=== PATIENT | female | born 2000 | race Caucasian/White ===

== ENCOUNTER → 2019-09-12 14:36 | Outpatient (BNVA) | payer MEDICAID, SELFPAY | PROVIDERS: Family Provider Nurse Practitioner; PCP Nurse Practitioner; Visit Provider Internal Medicine | DX: Z11.59 Encounter for screening for other viral diseases (principal) | CPT/HCPCS: 87635 ==

== ENCOUNTER → 2019-12-28 06:49 | Day surgery (SDC) | payer MEDICAID, SELFPAY ==
[2019-12-28 10:08] VITALS: BP 112/70; PULSE 91; RESP 18; TEMP 36.6; O2SAT 97
== END ==
PROVIDERS: PCP Nurse Practitioner; Visit Provider Family Medicine
DX: O36.0930 Maternal care for other rhesus isoimmunization, third trimester, not applicable or unspecified (principal)
CPT/HCPCS: 36415; 86850; 86900; 90384; 96372

== ENCOUNTER 2020-03-10 15:20 | Inpatient (IN) | payer MEDICAID, SELFPAY ==
[2020-03-10] VITALS (40 sets, daily range): BP systolic 95–135; BP diastolic 45–94; PULSE 83–139; RESP 18; TEMP 36.4–36.9; O2SAT 98–100; BMI 30.8
[2020-03-10 17:26] LABS: Basophils % 0.2 %; Eosinophils # 0.1 10^3/uL (0.0-0.8); Eosinophils % 0.7 %; Hematocrit 36.5 % (37.0-47.0); Hemoglobin 11.8 g/dL (11.5-15.3); Lymphocytes # 1.8 10^3/uL (1.5-6.5); Lymphocytes % 11.5 %; Mean Corpuscular HGB Conc 32.3 g/dL (30.0-36.0); Mean Corpuscular Hemoglobin 26.8 pg (28.0-34.0); Mean Corpuscular Volume 82.8 fL (81-99); Mean Platelet Volume 11.6 fL (7.4-10.4); Monocytes # 1.1 10^3/uL (0.2-0.9); Monocytes % 6.8 %; Neutrophils # 12.78 10^3/uL (1.8-8.0); Neutrophils % 80.4 %; Nucleated Red Blood Cells % 0 %; Platelet Count 274 10^3/cmm (130-400); Red Blood Count 4.41 10^6/uL (4.1-5.3); Red Cell Distribution Width 12.9 % (12.1-15.1); White Blood Count 15.9 10^3/uL (4.5-13.0)
[2020-03-10] MEDS: ampicillin 2,000 MG in sodium chloride 0.9% (plus) 50 ML 100 MG IV (17:26)
[2020-03-10] MEDS: dextrose 5%-lactated ringers 1,000 ML 125 ML IV (17:26)
[2020-03-10] MEDS: lactated ringers 1,000 ML 999 ML IV (17:45)
--- NOTE | 2020-03-10 17:55 | ANES.PREANE2 ---
Pre-Anesthetic Assessment Pre-Anesthetic Assessment: Height/Weight: Height 1.7 m Weight 89.358 kg Temp Pulse BP Pulse Ox 98.4 F 109 H 120/62 100 03/10/20 15:50 03/10/20 18:12 03/10/20 18:12 03/10/20 18:12 Preop Diagnosis: IUP Proposed Procedure: labor epidural Was Beta Ibeth taken within 24 hours: N/A Social: Social History: No alcohol and No tobacco Exam: Pre-Anes Outpt Exam: alert, oriented x 3, clear to auscultation bilaterally and regular rate & rhythm Airway: Submandibular: WNL Cervical ROM: WNL MP: 2 Dentition: Chipped History/ROS: No significant history except as noted Pulmonary: Pulmonary: None reported CV/HEM: CV/HEM: None reported : : None reported Hepatic: Hepatic: None reported GI: GI: None reported Metabolic: Metabolic: None reported Musc/skel: Musc/skel: None reported Neuropsych: Neuropsych: None reported Anesthetic Plan: ASA status: 1 Anesthesia: Anesthesia Evaluation Risk of > 500 ml blood loss (7ml/kg in children): No Meds/Allergies Current Medications: Current Medications Generic Name Dose Route Start Last Admin Trade Name Freq PRN Reason Stop Dose Admin Dextrose/Lactated Ringer's 1,000 mls @ 125 m ls/hr 03/10/20 17:15 03/10/20 17:45 Dextrose 5%-Lact ated Ringers IV 0 mls/hr .Q8H MINDY Infusion Ropivacaine 200 mg in 100 mls @ 13 mls/hr 03/10/20 17:30 03/10/20 17:44 Naropin Premix EPIDURAL 13 mls/hr .Q7H42M MINDY Administration Lactated Ringer's 1,000 mls @ 999 m ls/hr 03/10/20 17:22 03/10/20 17:45 Lactated Ringers IV 999 mls/hr .Q1H1M PRN Administration See label comment s PFSH Anesthesia Female Reproductive History: : 2 Data Anesthesia CBC & Chem 7: 03/10/20 17:05 Other Labs: Laboratory Results - last 48 hr 03/10/20 17:05 WBC 15.9 H RBC 4.41 Hgb 11.8 Hct 36.5 L MCV 82.8 MCH 26.8 L MCHC 32.3 RDW 12.9 Plt Count 274 MPV 11.6 H Neut % (Auto) 80.4 Lymph % (Auto) 11.5 Elbert % (Auto) 6.8 Eos % (Auto) 0.7 Baso % (Auto) 0.2 Neut # (Auto) 12.78 H Lymph # (Auto) 1.8 Elbert # (Auto) 1.1 H Eos # (Auto) 0.1 Baso # (Auto) 0.0 Nucleated RBC % (auto) 0 Nucleated RBCs # 0.0 Cardiac Studies: No Data to Display
--- NOTE | 2020-03-10 18:19 | ANES.PROC ---
Anesthesia Procedures Procedure/Date: 03/10/20 Epidural: Time Out Performed: Yes Consents Signed: Procedure Consent Consent: requested by attending/covering physician Lumbar Level: L3-L4 Epidural position: sitting Epidural procedure: sterile prep of area, 1% lidocaine to numb the area, 18 g needle, negative for paresthesia passed, neg for paresthesia, test dose given, 1.5% xylocaine 1:200k epi (5ml), placed PCEA, no systemic response, sterile dressing applied, L.U.D. no apparent complications and 0.2% Ropiavacaine @ mls/hr (13)
[2020-03-10] MEDS: ampicillin 1,000 MG in sodium chloride 0.9% (plus) 50 ML 100 MG IV (21:06)
[2020-03-10 22:09] LABS: Nitrazine Paper, PH Negative
--- NOTE | 2020-03-10 22:11 | P.PCNOB_ITS ---
Delivery Note: Date of delivery: March 10, 2020 Pre-Delivery Course: The patient presented to the hospital active labor. An epidural was placed. An amniotomy was performed. She progressed to complete without difficulty. She was GBS positive and received 2 doses of ampicillin. Delivery: DELIVERY: The patient progressed to complete without difficulty. She delivered a male with a weight of 8 pounds 3 ounces with Apgars of 9, 9. The baby was delivered from the KERRI position and placed on the mother's abdomen. The cord was then clamped and cut. There was no nuchal cord. There was no meconium. The placenta and 3 vessel cord were delivered intact shortly thereafter. The perineum and vaginal vault were carefully examined. A small first-degree midline laceration was noted in the posterior vagina that did not require repair. Both the mother and the baby were in stable condition. A&P Assessment and plan (1) 39 weeks gestation of : I anticipate routine care. Status: Acute (2) Spontaneous vaginal delivery: Status: Acute Coding Level of Care Code Acute Locker Room Clerk for Chg Fwd Diagnoses 39 weeks gestation of Z3A.39 Spontaneous vaginal delivery O80
[2020-03-11] VITALS (20 sets, daily range): BP systolic 99–136; BP diastolic 54–62; PULSE 75–112; RESP 15–17; TEMP 35.7–36.7; O2SAT 98
[2020-03-11] MEDS: HYDROcodone-acetaminophen 5-325 mg Tablet PO (02:42)
[2020-03-11] MEDS: docusate sodium 100 mg Capsule PO ×2 (09:15→18:33)
[2020-03-11] MEDS: prenatal vitamin Capsule 1 CAP PO (09:15)
[2020-03-11] MEDS: ibuprofen 800 mg tablet PO ×3 (09:15→21:11)
[2020-03-11 10:17] LABS: Hematocrit 31.9 % (37.0-47.0); Hemoglobin 10.2 g/dL (11.5-15.3); Mean Corpuscular Volume 84.4 fL (81-99); Mean Platelet Volume 11.5 fL (7.4-10.4); Platelet Count 203 10^3/cmm (130-400); Red Blood Count 3.78 10^6/uL (4.1-5.3); Red Cell Distribution Width 13.2 % (12.1-15.1)
--- NOTE | 2020-03-11 11:58 | PC.NURSE ---
pt encouraged to shower and ambulate in room. shower supplies provided.
--- NOTE | 2020-03-11 14:56 | ANE.PACU2 ---
Inpatient post-anesthesia follow up: Airway intact: Yes Vital signs: Temperature 98.1 F Pulse Rate 103 Respiratory Rate 15 Blood Pressure 113/56 Pulse Oximetry 99 Oxygen Delivery Me thod Room Air Oxygen Flow Rate Fraction of Inspir ed Oxygen Hydration adequate: Yes Nausea and vomiting: No Pain level: 2 Mental status: Baseline Additional Comments: no headaches, no numbness/weakness of lower extremities, urinating without chua, no signs or symptoms of infection at neuraxail site
--- NOTE | 2020-03-11 19:04 | P.DS_ITS ---
Discharge Providers TERMITE TREATER HELPER Date of Admission: 03/10/20 17:13 Date of Discharge: 03/11/20 Attending Provider at Admission: Daniel Lara MD Attending Provider at Discharge: Daniel Lara MD Primary Care Provider: ANOOP Oglesby Diagnoses at Discharge Discharge Diagnosis (1) 39 weeks gestation of : Status: Acute (2) Spontaneous vaginal delivery: Status: Acute Reason for Visit Reason for Visit: CONTRACTIONS SINCE 0430 Hospital Course Hospital Course The patient presented to the hospital in active labor. Please see delivery note for details of hospital stay prior to delivery. Postdelivery, the patient has had an unremarkable hospital stay. Her bleeding has been minimal. Her pain is been well controlled. She has bottle-fed her baby. There have been no concerns. Information Peripartum Data: Infant Delivery Method: Vaginal Physical Exam Const: COMMON NORMALS: no acute distress and patient oriented x3 GENERAL APPEARANCE: cooperative, comfortable and well developed HENMT: COMMON NORMALS: normocephalic and moist oral mucous membranes HEAD & SCALP: normocephalic Chest: COMMONS NORMALS: normal inspection of the chest Resp: COMMON NORMALS: normal respiratory effort and clear to auscultation bilaterally AUSCULTATION: clear to auscultation bilaterally Cardio: COMMON NORMALS: regular rate, regular rhythm and No gallops present (Cardio) RATE: regular rate RHYTHM: regular rhythm GI: COMMON NORMALS: Normal to inspection, nondistended, normoactive bowel sounds present (Fundus is 2 cm below the umbilicus) Extremity: COMMON NORMALS: normal to inspection Neuro: COMMON NORMALS: patient oriented x3 and no focal motor deficits Skin: COMMON NORMALS: no rashes or lesions noted GENERAL SKIN EXAM: no rashes or lesions noted Urinary Catheter Management^: [place]: Cath Placed During This Visit: yes Reason for Continuing Indwelling Catheter: Other Urinary Catheter Date of Insertion: 03/10/20 Urinary Catheter Time of Insertion: 18:25 Discharge Data Data Completed and Pending: Labs from last 24 hours 03/11/20 09:55 WBC 16.0 H RBC 3.78 L Hgb 10.2 L Hct 31.9 L MCV 84.4 MCH 27.0 L MCHC 32.0 RDW 13.2 Plt Count 203 MPV 11.5 H Vitals: Last Vital Signs Temp 97.5 F L 03/11/20 15:37 Pulse 75 03/11/20 15:37 Resp 16 03/11/20 15:38 BP 106/59 03/11/20 15:37 Pulse Ox 99 03/10/20 18:22 Discharge Plan Discharge Patient Disposition: Home Condition: Stable Prescriptions: New ibuprofen 800 mg Tablet 800 mg PO TID Qty: 30 RF: 0 Discharge Orders: Discharge Order (Routine); Ordered 03/11/20 Ordered By: Daniel Laar Referrals: Daniel Lara MD [Physician] - 6 Weeks Discharge Diet: Regular Discharge Activity: Limit activity as instructed Patient Instructions: Vaginal Delivery (DC), OB Discharge Report, OB Food/Drug Interaction Guide, OB Home Care, OB Proud Parent Packet, OB Vaginal Deliveries Discharge Attestations TERMITE TREATER HELPER Time Spent in Discharge Care*: less than 30 min Specific Discharge Activities: Specific discharge activities: educating patient Coding Level of Care Code Acute Contact Clerk for Chg Fwd Diagnoses 39 weeks gestation of Z3A.39 Spontaneous vaginal delivery O80
== END 2020-03-11 22:40 | disposition home or self-care (01) | DRG 807 ==
PROVIDERS: Admitting Provider Family Medicine; PCP Nurse Practitioner; Visit Provider Family Medicine
DX: O99.824 Streptococcus B carrier state complicating childbirth (principal); Z37.0 Single live birth; Z3A.39 39 weeks gestation of pregnancy; O70.0 First degree perineal laceration during delivery
CPT/HCPCS: 12345; 36415; 51702; 59025; 59409; 83986; 85025; 85027; 99211; G0378; G0379; J0290; J2795

== ENCOUNTER 2021-11-27 19:06 | Emergency (ER) | payer MEDICAID, SELFPAY ==
[2021-11-27 19:08] VITALS: BP 117/78; PULSE 91; RESP 15; TEMP 36.9; O2SAT 95; BMI 29.1
--- NOTE | 2021-11-27 19:48 | W.ED.ALLEREA ---
HPI - Allergic Reaction General: Chief complaint: Allergic Reaction Stated complaint: poison marichuy on face Time Seen by Provider: 11/27/21 19:33 History of Present Illness: HPI narrative: Patient is a 21-year-old female comes to the ED with pruritic rash. Patient works in [id number]. Yesterday they were cleaning out a flower bed and she got into some poison marichuy. She has poison marichuy type pruritic rash on her arms and legs bilaterally and also around her mouth. Denies any trouble breathing, throat tightening, lip or tongue swelling. Patient had poison sumac approximately 1 month ago and was given a steroid shot at that time which resolved the rash. Associated symptoms: Deny abdominal pain, nausea or vomiting Review of Systems Const: Denies: fever(s), chills or fatigue Eyes: Denies: change in vision or eye discomfort ENMT: Denies: throat pain, odynophagia, nasal discharge or nasal congestion Card: Denies: chest pain, palpitations, edema, swelling of feet/ankles, dyspnea on exertion or orthopnea Resp: Denies: dyspnea, productive cough or non-productive cough GI: Denies: abdominal pain, nausea, vomiting, diarrhea, constipation or hematochezia : Denies: flank pain, dysuria or hematuria Musc: Denies: neck pain, back pain or extremity swelling Skin/Breast: Reports: rash; Denies: new lesions Neuro: Denies: headache(s), numbness in extremities or weakness in extremities REPLACED BY [facility] PFSH: Medical History No pertinent family history Surgical History No pertinent past surgical history Female Reproductive History: Date of last menstrual period: 11/23/21 Physical Exam Const: COMMON NORMALS: no acute distress, patient oriented x3, healthy appearing and alert GENERAL APPEARANCE: cooperative and comfortable HENMT: COMMON NORMALS: normocephalic HEAD & SCALP: normocephalic MOUTH: Normal oral and palatal mucosa present, lip normal and tongue normal THROAT: posterior oropharynx normal and uvula midline Neck/C-Spine: COMMON NORMALS: supple GENERAL: Yes normal visual inspection Resp: COMMON NORMALS: normal respiratory effort, No retractions, No use of accessory muscles and clear to auscultation bilaterally AUSCULTATION: clear to auscultation bilaterally Cardio: COMMON NORMALS: regular rate, regular rhythm, S1 normal heart sound present, S2 normal heart sound present, No gallops present (Cardio), No clicks present (Cardio), No murmurs present (Cardio) and Peripheral pulses 2+ throughout RATE: regular rate RHYTHM: regular rhythm HEART SOUNDS: S1 normal heart sound present and S2 normal heart sound present PERIPHERAL PULSES: Peripheral pulses 2+ throughout GI: COMMON NORMALS: Normal to inspection, nondistended, normoactive bowel sounds present, Soft to palpation, non-tender and no masses PALPATION: Yes Soft to palpation : COMMON NORMALS: Yes no CVA tenderness BLADDER/KIDNEY EXAM: Yes no CVA tenderness Back/Pelvis: COMMON NORMALS: no CVA tenderness Extremity: COMMON NORMALS: normal to inspection Neuro: COMMON NORMALS: patient oriented x3 SENSORIUM/ORIENTATION: Yes alert GAIT: Yes Normal gait present Skin: NARRATIVE SKIN EXAM: Patient has linear raised erythemic maculopapular rash on arms bilaterally and around mouth. GENERAL SKIN EXAM: dry skin Course Vital Signs: Vital signs: Vital Signs Temperature 98.4 F 11/27/21 19:08 Pulse Rate 91 11/27/21 19:08 Respiratory Rate 15 11/27/21 19:08 Blood Pressure 117/78 11/27/21 19:08 Pulse Oximetry 95 11/27/21 19:08 MDM - Allergic Reaction Medical Decision Making Patient is a 21-year-old female comes to the ED with poison marichuy rash on arms and legs bilaterally and around her mouth. 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 Denies any other acute findings such as shortness of breath, throat tightening, lip or tongue swelling or nausea/vomiting. Vitals are stable. Patient appears nontoxic in no acute distress or pain. She has poison marichuy type rash on her arms bilaterally and around mouth. She is given a dose of Kenalog here in the ED. She was stable for discharge and sent home with a prescription for Medrol Dosepak to take if rash does not improve after 4 to 5 days from getting shot here in the ED. Follow-up with PCP within the next week for reevaluation. Patient understood and agreed with plan. Discharge Plan Discharge Patient Disposition: Home Clinical Impression: Allergic dermatitis due to poison marichuy Condition: Stable Prescriptions: New Medrol (Edis) 4 mg tablets,dose pack See Rx Instructions .ROUTE .COMPLEX Qty: 21 0RF Rx Instructions: orally per package directions Discharge Orders: Discharge ED (Routine); Ordered 11/27/21 Ordered By: Stuart Obrien Discharge Diet: Regular Discharge Activity: Increase activity as tolerated Patient Instructions: Poison [place], [place], and [place] - Adult Activity Restrictions/Additional Instructions: Follow-up with medical provider as directed in the next 7 to 10 days for reevaluation. If poison marichuy rash is not improving approximately 4 to 5 days after getting shot, then start taking the Medrol Dosepak prescription that I am sending you with. Take medications as prescribed. Return to the ER or your medical provider if condition worsens. Please read and understand discharge instructions. Thank you for choosing [facility] for your healthcare needs today. Please realize this is an emergency room and that we are providing you with a medical screening exam and this may not be complete and all inclusive of all the testing and or work up that you may need to determine your ailment or severity of your illness. It is very important that you follow up as instructed or that you return to the Emergency Department should you have concerns or if your condition changes or worsens in any way. Coding Level of Care Code ED Electrician Marine for Linh Galdamez Exam Comprehensive
[2021-11-27] MEDS: triamcinolone 40 mg/mL SDV IM (20:12)
== END 2021-11-27 20:15 | disposition home or self-care (01) ==
PROVIDERS: Emergency Provider Physician Assistant
DX: L23.7 Allergic contact dermatitis due to plants, except food (principal); L13.0 Dermatitis herpetiformis
CPT/HCPCS: 96372; 99284; J3301

== ENCOUNTER 2021-12-14 11:10 | Outpatient (CLI) | payer MEDICAID, SELFPAY ==
--- NOTE | 2021-12-14 11:27 | XR_ITS ---
WS: [id number] Left knee, 3 views, 12/14/2021 Clinical Data: BILATERAL KNEE JOINT PAIN X 3 MONTHS Comparison: None. Findings: No fractures or dislocations are seen. The joint spaces are normal. The patella is intact. The soft t issues are unremarkable. XR/XR knee LT 3V* [id number] Impression: Negative left knee. Kellgren-Jose Luis Classification: grade 0 (none): definite absence of x-ray darleen nges of osteoarthritis
--- NOTE | 2021-12-14 11:27 | XR_ITS ---
WS: [id number] Right knee, 3 views, 12/14/2021 Clinical Data: BILATERAL KNEE JOINT PAIN X 3 MONTHS Comparison: Right knee, 11/06/2015. Findings: No fractures or dislocations are seen. The joint spaces are normal. The patella is intact. The soft t issues are unremarkable. XR/XR knee RT 3V* [id number] Impression: Negative right knee. Kellgren-Jose Luis Classification: grade 0 (none): definite absence of x-ray darleen nges of osteoarthritis
== END 2021-12-14 11:11 | disposition home or self-care (01) ==
PROVIDERS: PCP Family Medicine; Visit Provider Family Medicine
DX: M25.562 Pain in left knee (principal); M25.561 Pain in right knee
CPT/HCPCS: 73562

== ENCOUNTER 2022-01-06 07:53 | Outpatient (CLI) | payer MEDICAID, SELFPAY ==
--- NOTE | 2022-01-06 08:09 | MR_ITS ---
WS: [id number] MRI RIGHT KNEE HISTORY: PAIN IN R KNEE COMPARISON: Radiograph 12/14/2021 Anterior cruciate ligament: Intact. Posterior cruciate ligament: Intact. Medial collateral ligament: Intact. Posterior lateral corner structures: Intact. Medial menisci: Intact. Very minimal intrasubstance degeneration in the posterior horn. No tear. Lateral meniscus: Intact. Normal signal, size and shape. Extensor mechanism: Distal quadriceps tendon and patellar tendons are intact. Fluid and soft tissue: No joint effusion. No Toledo's cyst. Osseous and articular structures: Patellofemoral compartment: No joint space narrowing. There is very mild chondromalacia in the patell a. No marrow edema. Patellar retinaculum is normal. Medial compartment: Minimal fissuring of the cartilage. No full-thickness defects. No marrow edema or fracture. Lateral compartment: Negative. MR/MR knee RT wo con* [id number] IMPRESSION: 1. No meniscal tear. 2. No marrow edema or fracture. 3. No joint effusion. 4. Mild chondromalacia patella.
== END 2022-01-06 07:54 | disposition home or self-care (01) ==
LOC: RAD 07:56
PROVIDERS: PCP Family Medicine; Visit Provider Family Medicine
DX: M22.41 Chondromalacia patellae, right knee
CPT/HCPCS: 73721

== ENCOUNTER 2022-02-07 06:00 | Outpatient (RCR) | payer MEDICAID, SELFPAY | END 2022-03-09 23:59 | disposition home or self-care (01) | LOC: SPT 06:00 | PROVIDERS: PCP Family Medicine; Visit Provider Family Medicine | DX: M25.561 Pain in right knee (principal); M25.562 Pain in left knee; G89.29 Other chronic pain | CPT/HCPCS: 97110; 97162 ==

== ENCOUNTER 2022-02-18 14:13 | Outpatient (CLI) | payer MEDICAID, SELFPAY ==
--- NOTE | 2022-02-18 | XRR_ITS ---
PROCEDURE INFORMATION: Exam: XR Right Hip Exam date and time: 02/18/2022 2:43 PM Age: 21 years old Clinical indication: Right hip; Patient HX: Chronic RT hip pain, no known injury; Additional info: Hip joint pain RT TECHNIQUE: Imaging protocol: Radiologic exam of the Right hip. Views: 1 view hip with pelvis when performed. COMPARISON: CR XR lumbar spine 2-3V* [id number] 11/06/2015 5:26 PM FINDINGS: Bones/joints: Unremarkable. No acute fracture. There is a small ossific density in the projection of the superior right acetabulum measuring 16 mm x 9.7 mm. This is a nonspecific entity and may reflect a chronic exostosis. Soft tissues: Unremarkable. XR/XR hip RT 2-3V wo/w pel* [id number] IMPRESSION: No acute bone abnormality.
== END 2022-02-18 14:14 | disposition home or self-care (01) ==
PROVIDERS: PCP Family Medicine; Visit Provider Family Medicine
DX: M25.551 Pain in right hip (principal)
CPT/HCPCS: 73502

== ENCOUNTER 2022-02-23 11:14 | Outpatient (CLI) | payer MEDICAID, SELFPAY ==
--- NOTE | 2022-02-23 11:32 | XR_ITS ---
WS: [id number] Lumbar spine, 8 views including AP, L5-S1 spot, both obliques, lateral views in flexion, extension an d neutral position, 02/23/2022 Clinical Data: SPINA BIFIDA OCCULTA Comparison: Lumbar spine, 11/06/2015. Findings: No compression fractures or subluxation is seen. No disc space narrowing is seen. The transverse proc esses and SI joints are normal. The oblique films show no spondylolysis. On flexion and extension there is no limitation of motion or subluxation. On the AP film the spina bifida occulta is not well seen. XR/XR lumbar spine 6V w f/e [id number] Impression: 1. Negative obliques of the lumbar spine. 2. On flexion and extension there is no limitation of motion or subluxation. 3. Spina bifida occulta difficult to see on the AP film.
== END 2022-02-23 11:15 | disposition home or self-care (01) ==
PROVIDERS: PCP Family Medicine; Visit Provider Family Medicine
DX: Q76.0 Spina bifida occulta (principal)
CPT/HCPCS: 72114

== ENCOUNTER 2022-04-05 07:54 | Outpatient (CLI) | payer MEDICAID, SELFPAY ==
--- NOTE | 2022-04-05 08:06 | MR_ITS ---
WS: [id number] MRI LUMBAR SPINE NONCONTRAST TECHNIQUE: Sagittal T1, T2 and STIR imaging. Axial T1 and T2 imaging. CLINICAL INFORMATION: LOW BACK PAIN/SPINA BIFIDA OCCULTA COMPARISON: None. FINDINGS: Mild lumbar curve. No acute compression. No high-grade central canal stenosis. Tiny shallow protrusio n T11-T12. L1-L2: No significant disc bulging. Mild facet arthropathy. Spinal canal and foramen are patent. L2-L3: No significant disc bulging. Mild facet arthropathy. Spinal canal and foramen are patent. L3-L4: No significant disc bulging. Mild facet arthropathy. Spinal canal is patent. Tiny RIGHT forami nal protrusion with mild RIGHT foraminal narrowing. L4-L5: Mild annular bulging. Slight effacement of the ventral thecal sac. Mild facet arthropathy. Spi nal canal is patent. Tiny RIGHT foraminal protrusion with mild RIGHT foraminal narrowing. LEFT forame n is patent. L5-S1: No significant disc bulging. Mild facet arthropathy. Spinal canal and foramen are patent. Visualized pelvic bony structures: Normal. Paravertebral soft tissues: Normal. MR/MR lumbar spine wo con* [id number] IMPRESSION: 1. Mild lumbar curve. No acute compression. No high-grade central canal stenos is. 2. Tiny RIGHT foraminal protrusion L4-L5 with mild RIGHT L4-L5 foraminal narro wing. 3. Tiny RIGHT foraminal protrusion L3-L4 and mild RIGHT foraminal narrowing. 4. Moderate facet arthropathy L3-L4 and L4-L5. 5. No other acute findings.
== END 2022-04-05 07:55 | disposition home or self-care (01) ==
LOC: RAD 07:55
PROVIDERS: PCP Family Medicine; Visit Provider Family Medicine
DX: Q76.0 Spina bifida occulta (principal); M51.26 Other intervertebral disc displacement, lumbar region; M48.061 Spinal stenosis, lumbar region without neurogenic claudication; M47.816 Spondylosis without myelopathy or radiculopathy, lumbar region
CPT/HCPCS: 72148

== ENCOUNTER → 2022-05-04 14:50 | Outpatient (BNVA) | payer MEDICAID, SELFPAY | PROVIDERS: PCP Family Medicine; Visit Provider Physician Assistant | DX: M54.50 Low back pain, unspecified (principal); M25.561 Pain in right knee | CPT/HCPCS: 72110; 73560; 73565 ==

== ENCOUNTER 2022-05-26 12:58 | Outpatient (CLI) | payer MEDICAID, SELFPAY ==
--- NOTE | 2022-05-26 13:10 | XR_ITS ---
WS: [id number] Cervical spine, 5 views including both obliques, 05/26/2022 Clinical Data: NUMBNESS TINGLING, R ARM Comparison: None. Findings: No compression fractures are seen. The disc heights are normal. There is no prevertebral so ft tissue swelling. The odontoid is unremarkable. The soft tissues of the neck and the lung apices ar e normal. The oblique films show no foraminal encroachment. XR/XR cervical spine 4-5V [id number] Impression: Negative cervical spine including both obliques.
--- NOTE | 2022-05-26 13:16 | MR_ITS ---
WS: [id number] MRI RIGHT KNEE NONCONTRAST TECHNIQUE: Axial PD, coronal PD fat sat, coronal PD, sagittal PD, and sagittal PD fat-sat images obta ined. CLINICAL INFORMATION: R KNEE PAIN COMPARISON: MRI January 06, 2022 FINDINGS: Distal quadriceps and patella tendons are intact. Hypertrophic patella. Moderate chondromalacia berry la. Normal medial and lateral patellar retinaculum. No subchondral edema. Trace joint effusion. Chond romalacia patella advanced for patient this age. Normal ACL and PCL. Medial and lateral meniscus are normal in appearance. No acute appearing meniscal tears. Normal medial and lateral collateral ligaments. Mild chondromalacia medial and lateral joint compartments with mild joint space narrowing. Slight hypertrophic changes along the joint line. MR/MR knee RT wo con* [id number] IMPRESSION: 1. Normal ACL and PCL. 2. Moderate chondromalacia patella advanced for patient this age. No subchondr al edema. This is similar in appearance to previous. 3. No acute appearing meniscal tears. 4. Medial and lateral collateral ligaments are intact. 5. Mild degenerative narrowing medial and lateral joint compartments with mild chondromalacia. No subchondral edema. Outbridge grading: grade II: blister-like swelling/fraying of articular cartila ge extending to surface
--- NOTE | 2022-05-26 13:16 | MR_ITS ---
WS: [id number] MRI LUMBAR SPINE NONCONTRAST TECHNIQUE: Sagittal T1, T2 and STIR imaging. Axial T1 and T2 imaging. CLINICAL INFORMATION: LOWER BACK PAIN COMPARISON: MRI April 05, 2022 FINDINGS: Mild lumbar curve. No acute compression. No high-grade central canal stenosis. Tiny RIGHT pericentral protrusion T11-T12 unchanged compared to previous. L1-L2: Mild facet arthropathy. Spinal canal and foramen are patent. L2-L3: Minimal annular bulging. Mild facet arthropathy. Spinal canal and foramen are patent. L3-L4: Tiny bilateral foraminal protrusions with mild LEFT greater than RIGHT foraminal narrowing. Sp inal canal is patent. Mild facet arthropathy. L4-L5: Mild annular bulging. Narrowing of the RIGHT subarticular recess. Tiny RIGHT foraminal protrus ion with slight contact of the exiting RIGHT L4 nerve root. Mild to moderate facet arthropathy. Spina l canal is patent. L5-S1: Mild annular bulging. Mild facet arthropathy. Spinal canal and foramen are patent. Visualized pelvic bony structures: Normal. Paravertebral soft tissues: Normal. MR/MR lumbar spine wo con* [id number] IMPRESSION: 1. Mild lumbar curve. No acute compression. No high-grade central canal stenos is. 2. Small bilateral foraminal protrusion with slight contact of the proximal ex iting L3 nerve roots LEFT greater than RIGHT. Recommend correlation LEFT L3 ner ve root symptoms. 3. Tiny RIGHT foraminal protrusion L4-L5 with slight contact exiting L4 nerve root. Recommend correlation for RIGHT L4 nerve root symptoms. 4. Narrowing of the RIGHT L4-L5 subarticular recess with encroachment traversi ng RIGHT L5 nerve root. 5. Mild to moderate facet arthropathy L3-L4 L4-L5.
== END 2022-05-26 12:59 | disposition home or self-care (01) ==
PROVIDERS: PCP Family Medicine; Visit Provider Family Medicine
DX: R20.2 Paresthesia of skin (principal); M43.8X6 Other specified deforming dorsopathies, lumbar region; M48.02 Spinal stenosis, cervical region; M51.26 Other intervertebral disc displacement, lumbar region; M47.896 Other spondylosis, lumbar region; M22.41 Chondromalacia patellae, right knee
CPT/HCPCS: 72050; 72148; 73721

== ENCOUNTER 2022-06-14 16:40 | Outpatient (CLI) | payer MEDICAID, SELFPAY | END 2022-06-14 16:41 | LOC: SPT 06-16 16:42 | PROVIDERS: Visit Provider Student in an Organized Health Care Education/Training Program | DX: Z46.89 Encounter for fitting and adjustment of other specified devices (principal); M25.561 Pain in right knee | CPT/HCPCS: L1812 ==

== ENCOUNTER 2022-12-08 08:49 | Day surgery (SDC) | payer MEDICAID, SELFPAY ==
[2022-12-08] VITALS (10 sets, daily range): BP systolic 102–118; BP diastolic 56–71; PULSE 63–87; RESP 12–20; TEMP 36.1–36.6; O2SAT 98–100; BMI 29.9
[2022-12-08] MEDS: sodium chloride 0.9% 1,000 ML 30 ML IV (09:26)
[2022-12-08] MEDS: acetaminophen 1,000 MG/100 ML PIGGYBACK 400 MG IV (09:45)
[2022-12-08] MEDS: ketorolac 30 mg/mL INJ IVP (09:45)
--- NOTE | 2022-12-08 10:30 | P.ANESASSM_ITS ---
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 Operation Date: 12/08/22 10:35 Proposed Procedures p right diagnostic and surgical Knee Arthroscopy(Right) - Malachi Obrien DO Familial anesthetic complications: None Was Beta Ibeth taken within 24 hours: N/A Was Clonidine taken within 24 hours: N/A Last intake: Intake Last Liquid Date 12/07/22 Last Liquid Time 21:00 Last Solid Date 12/07/22 Last Solid Time 21:00 Social No alcohol and No tobacco vapes Exam alert, oriented x 3, clear to auscultation bilaterally and regular rate & rhythm Airway Mallampati: Class I Dentition: chipped and other (1 pulled on lower set) Anesthetic Plan ASA status: 1 Anesthesia: General Risk of > 500 ml blood loss (7ml/kg in children): No Medications/Allergies Home Medications Medication Instructions Recorded Confirmed Last Taken Type Peteller Knee Brace #1 ea 06/14/22 11/19/22 Unknown Rx ibuprofen 800 mg tablet 800 mg PO TID PRN pain #60 tabs 08/24/22 12/08/22 12/07/22 Rx Allergies Allergy/AdvReac Type Severity Reaction Status Date / Time No Known Allergies Allergy Verified 12/07/22 12:43 Current Medications Generic Name Dose Route Start Last Admin Trade Name Freq PRN Reason Stop Dose Admin Sodium Chloride 1,000 mls @ 30 mls/hr 12/08/22 09:15 12/08/22 09:26 Sodium Chloride 0.9% IV 12/09/22 09:14 30 mls/hr .Q24H MINDY Administration PFSH Anesthesia Medical History No pertinent family history Surgical History No pertinent past surgical history Social History (Updated 11/19/22 @ 09:51 by Karoline Solorio LPN) Smoking and tobacco/nicotine status: current every day tobacco/nicotine user e- cigarettes Second hand smoke exposure: No Alcohol intake: current Alcohol intake frequency: holidays/special occasions only Substance/Drug Use: never Adopted: No Caregiver/support person: No Lives independently: Yes Household members: family Housing: House Number of children: 2 Highest education level completed: High School Graduate Female Reproductive History Date of last menstrual period: 11/08/22 Data Anesthesia Cardiac Studies: No Data to Display
[2022-12-08 10:53] LABS: OR HCG Qualitative Urine Negative (Negative)
--- NOTE | 2022-12-08 11:15 | W.PM.OPSUD ---
Surgery/Procedure H&P Update DATE OF PROCEDURE: December 08, 2022 DATE H&P PERFORMED: 11/19/22 H&P UPDATE INFORMATION: I have reviewed H&P completed within last 30 days, I have examined patient prior to procedure and No changes to prior documentation PREOP DIAGNOSIS: Right knee pain patella chondromalacia PRIMARY INDICATION FOR PROCEDURE: Right knee pain, patella chondromalacia PLANNED PROCEDURE: Operation Date: 12/08/22 10:35 Proposed Procedures p right diagnostic and surgical Knee Arthroscopy(Right) - Malachi Obrien DO
[2022-12-08] MEDS: ceFAZolin 2,000 MG in sodium chloride 0.9% (plus) 50 ML 100 MG IV (12:53)
[2022-12-08] MEDS: lidocaine-epi 2% 20 mL INJ 40 ML INJECTION (13:30)
--- NOTE | 2022-12-08 13:43 | P.BOP_ITS ---
Date of Procedure: 12/08/2022 Surgeon: Malachi Obrien DO Flanging Roll Operator(s): Stuart Obrien PA-C Procedure(s) performed: Right knee diagnostic and surgical arthroscopy medial plica excision, lateral and patellofemoral compartment chondroplasties, extensive synovectomy Findings of the procedure(s): Right knee patellofemoral and lateral compartment chondromalacia as well as medial plica with extensive synovitis procedure went as planned Estimated blood loss: 5 cc Specimen(s) removed: None Post-operative diagnosis: Right knee patellofemoral and lateral compartment chondromalacia, medial plica, extensive synovitis
--- NOTE | 2022-12-08 13:44 | PM.OP ---
Operative Report Date of procedure: December 08, 2022 Surgeon: Malachi Obrien DO Director Of Audiology: Stuart Obrien PA-C: JUAN was necessary for assistance in this case with leg positioning as well as passing of instrumentation and assist in wound closure. Procedure: Preoperative diagnosis: Right knee pain and patellofemoral chondromalacia Post-op diagnosis: Right knee patellofemoral and lateral compartment chondromalacia, medial plica, extensive synovitis Procedure done: Right knee diagnostic and surgical arthroscopy medial plica excision, Right knee diagnostic and surgical arthroscopy lateral and patellofemoral compartment chondroplasties, Right knee diagnostic and surgical arthroscopy extensive synovectomy Surgeon: Malachi Obrien DO Estimated blood loss: 5cc Tourniquet: No tourniquet was used IV fluids: See anesthesia record Complications: None Findings: See operative report narrative Condition: stable Disposition: same day Brief History: Patient is a 22-year-old male with right?knee?pain.? Patient has failed conservative treatment who has been worked up for right??knee?pain in the outpatient setting. Patient's failed conservative treatment. talked in the office about treatment options patient would like to proceed with a right?knee?diagnostic and surgical arthroscopy.? Patient understand the ins and outs of the procedure the risk benefits complication alternatives to treatment options.? Understanding risk of surgery they agree to proceed with surgical intervention.? Patient understand this may not provide patient with complete symptomatic relief of? pain as patient does have some underlying chondromalacia.? Understanding this and patient agree to proceed with surgical intervention all questions answered. Procedure: Patient seen and evaluated in the preoperative holding area.? Consent was reviewed and signed with patient.? Correct extremity was then marked.? Patient seen evaluated Anesthesia Department once cleared for surgery patient was taken back to the operative suite.? Patient was transported onto the OR table in supine position.? All bony prominences well-padded patient was appropriate secured to the bed.? Once appropriately anesthetized a nonsterile tourniquet was applied to the right thigh.? The right lower extremity was then prepped and draped in standard orthopedic fashion.? Final timeout performed.? Patient received appropriate preoperative antibiotics. Patient received local anesthetic of lidocaine with epinephrine into the joint as well as around the portal sites.? No tourniquet was inflated A standard 2 portal vertical incision diagnostic and surgical arthroscopy of the right?knee?was performed in standard fashion.? Small stab incision made in the inferolateral portal introduced trocar and arthroscope into the suprapatellar pouch.? Suprapatellar pouch was subsequently visualized and found to have significant synovitis but no loose bodies.? Patient had noticeable significant inflamed infrapatellar fat pad and thickening hypertrophic within the patellofemoral compartment.? Patient was found to have a significant thickened medial plica ?The medial gutter was free of loose bodies I then introduced the arthroscope into the medial compartment.? Within the medial compartment I then established my inferior medial working portal utilizing spinal needle outside in technique.? Once established I then visualized our articular cartilage of the medial compartment with a valgus stress.? Patient was found to have grade 0 chondromalacia throughout the medial compartment.? Next I inspected the meniscus.? Meniscus was completely intact with no tear of the medial meniscus or at the meniscal root and then subsequently just performed a simple synovectomy of the medial compartment. Next a introduced the arthroscope to the intercondylar notch.? PCL and ACL were intact. patient had significant thickening of the infrapatellar fat pad spanning into the medial and lateral compartments.? I then performed an extensive synovectomy with the arthroscopic shaver of the patellofemoral medial and lateral compartments as well as the intercondylar notch. Next I introduced the arthroscope into the lateral compartment the lateral compartment was found to have focal area of grade 2 through 3 on the lateral plateau however the rest of the compartment was grade 0?1 grade chondromalacia.? Lateral meniscus was found to be intact.? The root was intact.? I then subsequently utilized arthroscopic shaver and thermal wand to perform lateral compartment chondroplasty to stable articular tissue Next of the arthroscope was placed into the lateral gutter and this was free of loose bodies.? Finally I reintroduced the arthroscope into the patellofemoral compartment.? The patellofemoral was found to have grade 2- 3chondromalacia of the patellofemoral compartment.? This was found to be more focal in the undersurface of the patella. I utilized arthroscopic shaver and thermal wand to address this and take the articular tissue to stable articular margins. at this point I utilized arthroscopic shaver as well as thermal wand to perform extensive synovectomy of the patellofemoral compartment. This completed my work of the patellofemoral space.? This point in time I then subsequently performed medial plica excision I then switch my portal sites to the medial working portal.? Completed the rest of my synovectomy and the rest of my examination arthroscopy was normal. All fluid was suctioned from the joint.? ?All instruments were withdrawn.? Portal sites were closed with interrupted nylon suture.? portal sites were then covered with with Xeroform 4 x 4's ABD Curlex and Stehpen wrap.? Patient was then subsequently awakened from anesthesia and taken to PACU in stable condition. Disposition: Patient taken to PACU in stable condition recovering well.? Will receive appropriate discharge structure as well as pain medication postoperatively as well as? DVT prophylaxis.we will have patient follow-up with us in the office in 2 weeks.? We will weightbearing as tolerated to the right lower extremity.? Patient understands and agrees with current plan.? All questions answered.
--- NOTE | 2022-12-08 14:45 | ANE.PACU2 ---
Inpatient post-anesthesia follow up: Airway intact: Yes Vital signs: Temperature 97.9 F Pulse Rate 63 Respiratory Rate 16 Blood Pressure 104/60 Pulse Oximetry 100 Oxygen Delivery Me thod Room Air Oxygen Flow Rate Fraction of Inspir ed Oxygen Hydration adequate: Yes Nausea and vomiting: No Pain level: 1 Mental status: Baseline
== END 2022-12-08 14:45 | disposition home or self-care (01) ==
PROVIDERS: Anesthesiology; Visit Provider Student in an Organized Health Care Education/Training Program
PROC: (CPT 29870; principal; 2022-12-08 10:25)
DX: M22.41 Chondromalacia patellae, right knee (principal); M65.88 Other synovitis and tenosynovitis, other site; M67.51 Plica syndrome, right knee; F17.290 Nicotine dependence, other tobacco product, uncomplicated
CPT/HCPCS: 29877; 81025; 84703; J0131; J0690; J1100; J1200; J1885; J2250; J2405; J2704; J3010; J7030

== ENCOUNTER 2023-01-12 06:00 | Outpatient (RCR) | payer MEDICAID, SELFPAY | END 2023-02-06 23:59 | disposition home or self-care (01) | LOC: APT 06:00 | PROVIDERS: Visit Provider Physician Assistant | DX: M25.561 Pain in right knee (principal); G89.29 Other chronic pain | CPT/HCPCS: 97110; 97161; 97530 ==

== ENCOUNTER 2024-02-16 15:32 | Oncology outpatient (recurring) (ONCR) | payer MEDICAID, SELFPAY ==
[2024-02-16] MEDS: rho(d) immune globulin 1,500 unit Syringe 1500 UNIT IM (16:06)
--- NOTE | 2024-02-16 16:15 | PC.NURSE ---
RhoGan Injection given with the second nurse verification with Arabella Quezada Rn of neg.mm
[2024-02-16 16:17] VITALS: BP 121/76; PULSE 72; RESP 18; TEMP 36.1; O2SAT 98
== END 2024-03-09 23:59 | disposition home or self-care (01) ==
LOC: ONCMED 15:33
PROVIDERS: Visit Provider Family Medicine
DX: Z67.11 Type A blood, Rh negative (principal); Z79.899 Other long term (current) drug therapy
CPT/HCPCS: 96372; J2790

== ENCOUNTER 2024-02-28 09:45 | Outpatient (CLI) | payer MEDICAID, SELFPAY ==
[2024-02-28] VITALS (7 sets, daily range): BP systolic 90–115; BP diastolic 50–59; PULSE 65–77; RESP 17; O2SAT 98; BMI 35.7
[2024-02-28 11:08] LABS: Nitrazine Paper, PH Negative
[2024-02-28 11:09] LABS: Actim Prom Negative
== END 2024-02-28 11:27 | disposition home or self-care (01) ==
LOC: OPOB 09:46 → OBGYN 09:47
PROVIDERS: Visit Provider Family Medicine
DX: O26.899 Other specified pregnancy related conditions, unspecified trimester (principal); Z3A.00 Weeks of gestation of pregnancy not specified; N89.8 Other specified noninflammatory disorders of vagina
CPT/HCPCS: 59025; 83986; 84112; 99211

== ENCOUNTER 2024-05-01 07:53 | Outpatient (CLI) | payer MEDICAID, SELFPAY ==
[2024-05-01 08:05] VITALS: BMI 38.4
[2024-05-01 08:09] VITALS: BP 121/69; PULSE 83
[2024-05-01 08:35] LABS: Bilirubin Urine Negative (Negative); Blood Urine Negative (Negative); Glucose Urine UA Negative (Normal); Ketones Urine Negative (Negative); Leukocyte Esterase Urine 2+ (Negative); Nitrate Urine Negative (Negative); Protein Urine Negative (Negative); Specific Gravity, Urine 1.009 (1.005-1.030); Urine Appearance Clear (CLEAR); Urine Color Yellow (Yellow); Urobilinogen Urine 0.2 mg/dL (Negative)
[2024-05-01 08:39] VITALS: BP 110/61; PULSE 76
[2024-05-01 08:40] LABS: Bacteria Urine 3+ /hpf; Hyaline Casts Urine 2.05 /lpf; RBC Urine 0-2 /hpf (0-2)
[2024-05-01] MEDS: acetaminophen 500 mg Tablet 1000 MG PO (08:41)
[2024-05-01 08:44] LABS: Add Urine Culture? No
[2024-05-01 09:10] VITALS: BP 103/64; PULSE 78
[2024-05-01 09:40] VITALS: BP 104/63; PULSE 75
[2024-05-01 09:55] VITALS: BP 104/63; PULSE 75; RESP 16; TEMP 36.2; O2SAT 99
== END 2024-05-01 09:55 | disposition home or self-care (01) ==
LOC: OPOB 07:57 → OBGYN 07:59
PROVIDERS: Visit Provider Family Medicine
DX: O26.899 Other specified pregnancy related conditions, unspecified trimester (principal); Z3A.00 Weeks of gestation of pregnancy not specified; R25.2 Cramp and spasm; M54.9 Dorsalgia, unspecified
CPT/HCPCS: 59025; 81001; 99211; J9999

== ENCOUNTER 2024-05-09 10:11 | Inpatient (IN) | payer MEDICAID, SELFPAY ==
[2024-05-09] VITALS (60 sets, daily range): BP systolic 92–140; BP diastolic 54–100; PULSE 67–108; RESP 16–17; TEMP 36.9; O2SAT 88–100; BMI 38.2
[2024-05-09] MEDS: lactated ringers 1,000 ML 999 ML IV (10:50)
[2024-05-09 10:59] LABS: Basophils % 0.1 %; Eosinophils % 0.3 %; Hematocrit 34.8 % (36-47); Lymphocytes # 1.8 10^3/uL (0.8-4.8); Lymphocytes % 17.4 %; Mean Corpuscular HGB Conc 32.5 g/dL (30-55); Mean Corpuscular Hemoglobin 26.7 pg (27-33); Mean Corpuscular Volume 82.1 fl (85-98); Mean Platelet Volume 11.5 fL (7.4-10.4); Monocytes # 0.8 10^3/uL (0.2-0.9); Monocytes % 7.3 %; Neutrophils # 7.83 10^3/uL (1.8-7.7); Neutrophils % 74.5 %; Nucleated Red Blood Cells % 0 %; Platelet Count 271 10^3/cmm (157-399); Red Blood Count 4.24 10^6/uL (3.85-5.65); Red Cell Distribution Width 13.7 % (12.1-15.1); White Blood Count 10.51 10^3/uL (3.29-11.43)
[2024-05-09] MEDS: ROPivacaine syringe 100 MG/50 ML SYRINGE 10 MG EPIDURAL ×2 (11:57→16:09)
[2024-05-09] MEDS: dextrose 5%-lactated ringers 1,000 ML 125 ML IV (12:05)
--- NOTE | 2024-05-09 12:06 | ANES.PREANE2 ---
Pre-Anesthetic Assessment Height/Weight: Height 1.65 m Weight 104.326 kg Pulse BP Pulse Ox 87 117/65 99 05/09/24 12:01 05/09/24 12:01 05/09/24 12:00 Epidural Familial anesthetic complications: None Was Beta Ibeth taken within 24 hours: N/A Was Clonidine taken within 24 hours: N/A Social No alcohol and No tobacco Exam alert, oriented x 3, clear to auscultation bilaterally and regular rate & rhythm Airway Mallampati: Class II Dentition: full Anesthetic Plan ASA status: 2 Anesthesia: Regional (specify below) Risk of > 500 ml blood loss (7ml/kg in children): Yes, adequate IV access and fluids planned Medications/Allergies Home Medications ?Medication ?Instructions ?Recorded ?Confirmed ?Last Taken ?Type acetaminophen 325 mg tablet 500 mg PO QID PRN Pain 01/03/24 05/09/24 Unknown History (Tylenol) right economy hinged knee brace #1 ea 01/03/24 01/03/24 Unknown Rx Allergies Allergy/AdvReac Type Severity Reaction Status Date / Time No Known Allergies Allergy Verified 05/09/24 10:59 [facility] Anesthesia Medical History No pertinent family history Surgical History No pertinent past surgical history Social History Smoking and tobacco/nicotine status: current every day tobacco/nicotine user (VAPING) e-cigarettes Second hand smoke exposure: No Alcohol intake: current Alcohol intake frequency: holidays/special occasions only Substance/Drug Use: never Adopted: No Caregiver/support person: No Lives independently: Yes Household members: family Housing: House Number of children: 2 Highest education level completed: High School Graduate Female Reproductive History : 3 Data Anesthesia 05/09/24 10:45 Short CBC 05/09/24 Range/Units 10:45 WBC 10.51 (3.29-11.43) 10^3/uL Hgb 11.30 (11.27-16.99) g/dL Hct 34.8 L (36-47) % MCV 82.1 L (85-98) fl Plt Count 271 (157-399) 10^3/cmm Neut % (Auto) 74.5 % Neut # (Auto) 7.83 H (1.8-7.7) 10^3/uL Blood Bank 05/09/24 10:45 Blood Type A Negative Rho(D) Type Rh negative Antibody Screen Negative Cardiac Studies: No Data to Display
--- NOTE | 2024-05-09 12:06 | ANES.PROC ---
Anesthesia Procedures Procedure/Date: 05/09/24 Epidural: Time Out Performed: Yes Consents Signed: Procedure Consent and NPO Consent Consent: requested by attending/covering physician, from patient, from other, risks and benefits reviewed, patient agrees to proceed and emergency procedure Lumbar Level: L3-L4 Epidural position: sitting Epidural procedure: sterile prep of area, 1% lidocaine to numb the area, 18 g needle, negative for paresthesia passed, neg for paresthesia, test dose given, 1.5% xylocaine 1:200k epi (5 cc), 0.2% Ropivacaine bolus ml (5), placed PCEA, no systemic response, sterile dressing applied, L.U.D. no apparent complications and 0.2% Ropiavacaine @ mls/hr (10) Additional Comments: ROSE at 6 cm, threaded to 11 cm
--- NOTE | 2024-05-09 19:03 | PM.OPHPUD ---
Labor & Delivery H&P Update Date of Procedure: May 09, 2024 Date H&P Performed: 04/05/24 Changes to previous documentation: Patient arrived in active labor with consistent contractions and cervical change Admission Diagnosis: 24-year-old 3 para 2-0-0-2 at 39 weeks estimated gestational age Other information: The patient has had an unremarkable . She arrived to the hospital after having contractions for several hours. Her blood type is A-. Her antibody screen is negative. She is rubella immune. She passed her glucose screen. The remainder of her infectious disease profile was within normal limits. Related Problem List Diagnoses (1) 39 weeks gestation of : A&P Assessment and plan (1) 39 weeks gestation of : I anticipate routine labor and delivery. Status: Acute PDMP PDMP Reviewed: Not Reviewed
[2024-05-09] MEDS: oxytocin 30 UNIT/500 ML BAG 600 UNIT IV (19:27)
[2024-05-09] MEDS: ibuprofen 800 mg tablet PO (21:58)
[2024-05-09] MEDS: benzocaine-menthol 78 gm Canister 1 SPRAY TOPICAL (22:12)
[2024-05-10] VITALS (7 sets, daily range): BP systolic 106–121; BP diastolic 56–76; PULSE 76–96; RESP 15–17; TEMP 36.4–36.7; O2SAT 94–99
[2024-05-10 07:27] LABS: Mean Corpuscular HGB Conc 31.6 g/dL (30-55); Mean Corpuscular Hemoglobin 25.7 pg (27-33); Mean Corpuscular Volume 81.2 fl (85-98); Mean Platelet Volume 11.7 fL (7.4-10.4); Platelet Count 223 10^3/cmm (157-399); Red Blood Count 3.82 10^6/uL (3.85-5.65); Red Cell Distribution Width 13.6 % (12.1-15.1); White Blood Count 12.52 10^3/uL (3.29-11.43)
--- NOTE | 2024-05-10 08:18 | P.DS_ITS ---
Discharge Providers PROFESSOR OF THEATRE Date of Admission: 05/09/24 10:11 Date of Discharge: 05/16/24 Attending Provider at Admission: Daniel Lara MD Attending Provider at Discharge: Daniel Lara MD Diagnoses at Discharge Discharge Diagnosis (1) 39 weeks gestation of : Status: Resolved Reason for Visit Reason for Visit: Ctx Hospital Course Hospital Course The patient arrived at the hospital in active labor and make inconsistent cervical change with contractions. An epidural was placed. She progressed to complete without difficulty. She had unremarkable vaginal delivery her course was also unremarkable. She breast-fed well. Her bleeding was within normal limits. Her pain was well-controlled. There were no concerns. Information Peripartum Data: Infant Delivery Method: Vaginal Physical Exam Narrative: The patient is alert. She appears comfortable. Her heart has a regular rate and rhythm with no murmurs appreciated. Lungs are clear to auscultation bilaterally. Her fundus is firm and below the umbilicus. Urinary Catheter Management: [place] Latex: Cath Placed During This Visit: yes, but has since been removed by the nurse Reason for Continuing Indwelling Catheter: Decision to DC Catheter Urinary Catheter Date of Insertion: 05/09/24 Urinary Catheter Time of Insertion: 12:30 Date Urinary Catheter Removed: 05/09/24 Time Urinary Catheter Discontinued: 19:01 Discharge Data Studies Completed and Pending Pending at discharge Category Date Time Status Complete Crossmatch Routine Lab 05/09/24 10:45 Results Rho D Immune Globulin Routine Lab 05/09/24 10:45 Results Type and Screen Routine Lab 05/09/24 10:45 Results Laboratory Results WBC 12.52 10^3/uL (3.29-11.43) H 05/10/24 07:10 RBC 3.82 10^6/uL (3.85-5.65) L 05/10/24 07:10 Hgb 9.80 g/dL (11.27-16.99) L 05/10/24 07:10 Hct 31.0 % (36-47) L 05/10/24 07:10 MCV 81.2 fl (85-98) L 05/10/24 07:10 MCH 25.7 pg (27-33) L 05/10/24 07:10 MCHC 31.6 g/dL (30-55) 05/10/24 07:10 RDW 13.6 % (12.1-15.1) 05/10/24 07:10 Plt Count 223 10^3/cmm (157-399) 05/10/24 07:10 MPV 11.7 fL (7.4-10.4) H 05/10/24 07:10 Neut % (Auto) 74.5 % 05/09/24 10:45 Lymph % (Auto) 17.4 % 05/09/24 10:45 [place] % (Auto) 7.3 % 05/09/24 10:45 Eos % (Auto) 0.3 % 05/09/24 10:45 Baso % (Auto) 0.1 % 05/09/24 10:45 Neut # (Auto) 7.83 10^3/uL (1.8-7.7) H 05/09/24 10:45 Lymph # (Auto) 1.8 10^3/uL (0.8-4.8) 05/09/24 10:45 [place] # (Auto) 0.8 10^3/uL (0.2-0.9) 05/09/24 10:45 Eos # (Auto) 0.0 10^3/uL (0.0-0.8) 05/09/24 10:45 Baso # (Auto) 0.0 10^3/uL (0.0-0.1) 05/09/24 10:45 Nucleated RBC % (auto) 0 % 05/09/24 10:45 Nucleated RBCs # 0.0 /100WBC 05/09/24 10:45 Blood Type A Negative 05/09/24 10:45 Rho(D) Type Rh negative 05/09/24 10:45 Antibody Screen Negative 05/09/24 10:45 Screen Negative (Negative) 05/10/24 07:10 Vitals Last Vital Signs Temp 97.7 F 05/10/24 05:22 Pulse 85 05/10/24 05:22 Resp 16 05/10/24 05:22 BP 121/76 05/10/24 05:22 Pulse Ox 99 05/09/24 12:20 O2 Del Method Room Air 05/10/24 04:30 Results Labs OB ([facility]): Obstetrics US 03/26/24 Blood Type A Negative 05/09/24 Antibody Screen Negative 05/09/24 Hct 31.0 % (36-47) L 05/10/24 Hgb 9.80 g/dL (11.27-16.99) L 05/10/24 Rho(D) Type Rh negative 05/09/24 Plt Count 223 10^3/cmm (157-399) 05/10/24 Discharge Plan Discharge Patient Disposition: Home Condition: Stable Prescriptions: New ibuprofen 800 mg Tablet 800 mg PO TID Qty: 45 0RF Continued acetaminophen [Tylenol] 325 mg tablet 500 mg PO QID PRN (Reason: Pain) No Action (DME) right economy hinged knee brace See Rx Instructions .Route .MEDSUPPLY Qty: 1 0RF Rx Instructions: As directed Discharge Orders: Discharge Order (Routine); Ordered 05/10/24 Ordered By: Daniel Lara Referrals: Daniel Lara MD [Physician] - 06/20/24 10:20 am Discharge Diet: Usual diet Discharge Activity: Limit activity as instructed Patient Instructions: Depression (DC), Bleeding (DC), Preeclampsia and Eclampsia After Delivery (GEN), Hemorrhage (DC), OB Discharge Report, OB Food/Drug Interaction Guide, OB Care at Home, Opioid Safety, OB Home Care, OB Vaginal Deliveries Discharge Attestations PROFESSOR OF THEATRE Time Spent in Discharge Care*: less than 30 min Coding Level of Care Code Acute Code for Chg Fwd Diagnoses 39 weeks gestation of Z3A.39
[2024-05-10] MEDS: ibuprofen 800 mg tablet PO ×2 (09:24→16:06)
[2024-05-10] MEDS: docusate sodium 100 mg Capsule PO (09:25)
[2024-05-10] MEDS: PRENATAL VIT NO.130/IRON/FOLIC 1 EACH TABLET PO (09:25)
--- NOTE | 2024-05-10 14:30 | ANE.PACU2 ---
Inpatient post-anesthesia follow up: Airway intact: Yes Vital signs: Temperature 97.6 F Pulse Rate 96 Respiratory Rate 16 Blood Pressure 117/66 Pulse Oximetry 99 Oxygen Delivery Me thod Room Air Oxygen Flow Rate Fraction of Inspir ed Oxygen Hydration adequate: Yes Nausea and vomiting: No Pain level: 1 Mental status: Baseline Epidural Start/End: Epidural Start Date: 05/09/24 Epidural Start Time: 11:38 Epidural End Date: 05/09/24 Epidural End Time: 19:28
--- NOTE | 2024-05-16 07:58 | PM.DELIVERY ---
Delivery Note: Date of delivery: May 16, 2024 Pre-delivery diagnoses: 24-year-old 3 para 2-0-0-2 at 39 weeks estimated gestational age presenting in active labor Post-delivery diagnoses: Status post spontaneous vaginal delivery Procedure: Spontaneous vaginal delivery Delivering Physician: Daniel Lara Estimated blood loss (mL): 100 Pre-Delivery Course: The patient presented to the hospital in active labor. An epidural was placed. She progressed to complete without difficulty. Delivery: DELIVERY: The patient progressed to complete without difficulty. She delivered a female with a weight of 4075 g with Apgars of 8, 9. The baby was delivered from the KERRI position and placed on the mother's abdomen. The cord was then clamped and cut. There was no nuchal cord. There was no meconium. The placenta and 3 vessel cord were delivered intact shortly thereafter. The perineum and vaginal vault were carefully examined. No lacerations were noted. Both the mother and the baby were in stable condition. Post-Delivery Status: Good A&P Assessment and plan (1) 39 weeks gestation of : I anticipate routine care. (2) Vaginal delivery: PDMP PDMP Reviewed: Not Reviewed Coding Level of Care Code Acute Code for Chg Fwd Diagnoses 39 weeks gestation of Z3A.39 Vaginal delivery O80
== END 2024-05-10 20:50 | disposition home or self-care (01) | DRG 807 ==
LOC: OPOB 10:11 → OBGYN 10:11
PROVIDERS: Admitting Provider Family Medicine; Visit Provider Family Medicine
DX: O80 Encounter for full-term uncomplicated delivery (principal); Z37.0 Single live birth; Z3A.39 39 weeks gestation of pregnancy
CPT/HCPCS: 36415; 36430; 51702; 59025; 59409; 85025; 85027; 85460; 86850; 86900; 90384; 99211; J2590; J2795; J7120; J7121; J9999

== ENCOUNTER → 2024-11-14 16:44 | Outpatient (BNVA) | payer MEDICAID, SELFPAY | PROVIDERS: PCP Nurse Practitioner; Visit Provider Nurse Practitioner | DX: J02.9 Acute pharyngitis, unspecified (principal) | CPT/HCPCS: 87071; 87880 ==